=== PATIENT | female | born 1965 | race Caucasian/White ===

== ENCOUNTER 2018-12-11 05:44 | Day surgery (SDC) | payer OTHER ==
[~2018-12-11] VITALS: Ht 172.7 cm; Wt 79.8 kg
[~2018-12-11 05:44] MED LIST: ADVAIR HFA [SP]12 GM INH; ATIVAN1 MG PO; LIPITOR20 MG PO; NAPROSYN500 MG PO; NEURONTIN600 MG PO; SINGULAIR10 MG PO
[2018-12-11 06:24] LABS: CALC OSMOLALITY 282 mosm/kg (275-300); CALCIUM 9.1 mg/dL (8.5-10.1); CARBON DIOXIDE 23.5 mmol/L (21.0-32.0); CHLORIDE - SERUM 106 mmol/L (98-107); CREATININE - SERUM 0.8 mg/dL (0.6-1.3); GLUCOSE 96 mg/dL (74-106); POTASSIUM - SERUM 4.3 mmol/L (3.5-5.1); SODIUM 141 mmol/L (136-145); UREA NITROGEN 19 mg/dL (7-18); eGFR NON AFRICAN AMERICAN 80 mL/min (90-120)
[2018-12-11 06:52] LABS: BASOPHILS 0.2 % (0-2); EOSINOPHILS 1.8 % (0-7); HEMATOCRIT 40.3 % (36.0-48.0); HEMOGLOBIN 13.7 g/dL (12-16); IMMATURE GRANULOCYTES 0.2 % (0-5); LYMPHOCYTES 24.1 % (15-50); MCV 88.2 fL (80.0-100.0); MEAN PLATELET VOLUME 10.9 fL (7.4-10.4); MONOCYTES 5.9 % (2-11); NEUTROPHILS 67.8 % (40-80); PLATELET COUNT 294 10x3/uL (130-400); RBC 4.57 10x6/uL (4.00-5.40); RDW 13.6 % (11.5-14.5); WBC 12.3 10x3/uL (4.8-10.8)
[2018-12-11] MEDS ORDERED: CELEXA20 MG PO (06:57)
[2018-12-11 07:07] VITALS: BP 126/74; Ht 172.7 cm; Wt 79.8 kg
[2018-12-11] MEDS ORDERED: HYDROCODON-ACE1 EA10 PO (08:51)
--- NOTE | 2018-12-11 09:51 | NUR ---
0950 ICE PACK AND FL DIET SERVED.
--- NOTE | 2018-12-17 07:54 | OP ---
PATIENT NAME: ESTER KING MEDICAL RECORD: [id number] :67 LOCATION:[facility] ADMISSION DATE: SURGEON: AIDAN REHMAN MD DATE OF OPERATION: 12/11/2018 PREOPERATIVE DIAGNOSES: 1. Posterior neck mass. 2. Fibromyalgia. 3. Asthma. 4. Tobacco dependence syndrome. POSTOPERATIVE DIAGNOSES: 1. Posterior neck mass. 2. Fibromyalgia. 3. Asthma. 4. Tobacco dependence syndrome. PROCEDURE: Excision of right posterior neck 2 cm mass. SURGEON: Aidan Rehman MD REPORT OF PROCEDURE: The patient was placed in the right lateral decubitus position and the posterior aspect of the neck was prepped and draped in sterile fashion. A transverse incision was made overlying the mass. Electrocautery was used to dissect through the subcutaneous tissues. We encountered a firm collection of fatty tissue consistent with a lipoma. This lipoma was approximately 2 cm in size. It was adherent to some of the surrounding structures and had to be removed using electrocautery. Once we got the mass removed, then we inspected the area to see if there is any bleeding. Any bleeding that was found was treated with electrocautery. We then irrigated out the wound with normal saline. The wound was infused with a total of 10 mL of 0.25% Marcaine with epinephrine. The subcutaneous tissues were reapproximated with interrupted 3-0 Vicryl and the skin was closed with running subcutaneous 5-0 Monocryl. COMPLICATIONS: None. CONDITION: Stable. ANESTHESIA: General endotracheal and local. BLOOD LOSS: Minimal. TRANSINT:[id number] Voice Confirmation ID: [id number] DOCUMENT ID: [id number] AIDAN REHMAN MD at 0754 CC: MARU CARSON [id number] DICTATION DATE: 12/11/18 0855 GRAIN INSPECTOR: 12/11/18 1146 [facility] 12/11/[address] [id number]
== END 2018-12-11 12:55 | disposition home or self-care (01) ==
LOC: D.OPS 05:44 → D.PAN 08:00 → D.OPS 08:00
PROVIDERS: ATTEND Surgery
DX: R22.2 Localized swelling, mass and lump, trunk (principal)